=== PATIENT | female | born 1955 | race Caucasian/White ===

== ENCOUNTER 2018-08-12 12:14 | Emergency (ER) | payer MEDICAID ==
[~2018-08-12] VITALS: Ht 165.1 cm; Wt 90.9 kg
[~2018-08-12 12:14] MED LIST: CITA20TA28 PO; MELO-102 PO; RANI150C4 PO
[2018-08-12] MEDS ORDERED: propofol 10mg/ml 20ml vial IV ONE ×2 (12:30→13:30)
[2018-08-12] MEDS ORDERED: fentaNYL/PF 50MCG/1 ML 2ML syringe IV ONE (12:35)
[2018-08-12] MEDS ORDERED: HYDR-3965 PO (13:47)
--- NOTE | 2018-08-12 14:04 | NUR ---
PT WAS NOT GIVEN FENTANYL. MED WAS DRAWN UP AND PT REFUSED MED.
[2018-08-12 14:58] VITALS: BP 103/75
== END 2018-08-12 15:06 | disposition home or self-care (01) ==
LOC: ER 12:15
DX: S43.014A Anterior dislocation of right humerus, initial encounter (principal); S43.034A Inferior dislocation of right humerus, initial encounter; S43.004A Unspecified dislocation of right shoulder joint, initial encounter; I12.9 Hypertensive chronic kidney disease with stage 1 through stage 4 chronic kidney disease, or unspecified chronic kidney disease; N18.9 Chronic kidney disease, unspecified; Z79.82 Long term (current) use of aspirin; Z88.5 Allergy status to narcotic agent; Z79.899 Other long term (current) drug therapy; W07.XXXA Fall from chair, initial encounter; Y93.89 Activity, other specified; Y92.89 Other specified places as the place of occurrence of the external cause; Y99.8 Other external cause status
CPT/HCPCS: 23650; 73020; 73030; 96374; 99284; J2704; J3010

== ENCOUNTER 2019-01-14 13:41 | Emergency (ER) | payer MEDICARE, MEDICAID ==
[~2019-01-14] VITALS: Ht 165.1 cm; Wt 85.9 kg
[2019-01-14] MEDS ORDERED: propofol 10mg/ml 20ml vial IV ONE (14:30)
[2019-01-14 15:44] VITALS: BP 115/44
== END 2019-01-14 15:49 | disposition home or self-care (01) ==
LOC: ER 13:42
DX: S43.084A Other dislocation of right shoulder joint, initial encounter (principal); I12.9 Hypertensive chronic kidney disease with stage 1 through stage 4 chronic kidney disease, or unspecified chronic kidney disease; N18.9 Chronic kidney disease, unspecified; Z88.5 Allergy status to narcotic agent; Z79.899 Other long term (current) drug therapy; X50.1XXA Overexertion from prolonged static or awkward postures, initial encounter; Y93.89 Activity, other specified; Y92.89 Other specified places as the place of occurrence of the external cause; Y99.9 Unspecified external cause status
CPT/HCPCS: 23650; 73020; 99152; 99285; J2704

== ENCOUNTER 2020-04-21 09:04 | Emergency (ER) | payer MEDICARE, OTHER ==
[~2020-04-21] VITALS: Ht 165.1 cm; Wt 88.6 kg
[2020-04-21] MEDS ORDERED: bacitracin 15gm ointment TP ONE (09:40)
--- NOTE | 2020-04-21 10:53 | NUR ---
Patient moved to bed 14. Dr. Strauss to remove hook. Patient denies pain. UTD on tetnus.
--- NOTE | 2020-04-21 10:55 | NUR ---
DR ABRAHAM AT BEDSIDE .
[2020-04-21] MEDS ORDERED: CEPH250T PO (11:31)
[2020-04-21 11:45] VITALS: BP 129/76
== END 2020-04-21 11:44 | disposition home or self-care (01) ==
LOC: ER 09:04
DX: S60.551A Superficial foreign body of right hand, initial encounter (principal); I10 Essential (primary) hypertension; Z87.448 Personal history of other diseases of urinary system; Z87.19 Personal history of other diseases of the digestive system; Z88.5 Allergy status to narcotic agent; Z79.899 Other long term (current) drug therapy; Z79.2 Long term (current) use of antibiotics; X58.XXXA Exposure to other specified factors, initial encounter; Y93.89 Activity, other specified; Y92.89 Other specified places as the place of occurrence of the external cause; Y99.8 Other external cause status
CPT/HCPCS: 10120; 99284; 99285

== ENCOUNTER 2022-09-12 06:34 | Day surgery (SDC) | payer OTHER ==
[2022-09-11 13:39] LABS: BASOPHILS # (AUTO) 0.1 X10'3 (0-0.2); BASOPHILS % (AUTO) 0.9 % (0-1); EOSINOPHILS # (AUTO) 0.2 X10'3 (0-0.9); EOSINOPHILS % (AUTO) 2.8 % (0-6); HEMATOCRIT 45.6 % (35.0-45.0); HEMOGLOBIN 15.3 g/dl (12.0-16.0); LYMPHOCYTES # (AUTO) 2.1 X10'3 (1.1-4.8); LYMPHOCYTES % (AUTO) 27.6 % (21-51); MEAN CORPUSCULAR HEMOGLOBIN 31.3 PG (27.0-31.0); MEAN CORPUSCULAR HGB CONC 33.5 g/dL (33.0-36.5); MEAN CORPUSCULAR VOLUME 93.3 FL (78-98); MEAN PLATELET VOLUME 9.2 FL (7.4-10.4); MONOCYTES # (AUTO) 0.7 X10'3 (0-0.9); MONOCYTES % (AUTO) 9.3 % (2-12); NEUTROPHILS # (AUTO) 4.5 X10'3 (1.8-7.7); NEUTROPHILS % (AUTO) 59.4 % (42-75); PLATELET COUNT 214 X10'3 (140-440); RED BLOOD COUNT 4.89 X10'6 (4.20-5.60); RED CELL DISTRIBUTION WIDTH 14.1 % (11.5-14.5); WHITE BLOOD COUNT 7.6 X10'3 (4.5-11.0)
[2022-09-11 13:51] LABS: APTT 27 SECONDS (22-32)
[2022-09-11 13:52] LABS: ALBUMIN 3.8 G/DL (3.4-5.0); ANION GAP 6 (8-16); BILIRUBIN,TOTAL 0.5 MG/DL (0.1-1.0); BLOOD UREA NITROGEN 28 MG/DL (7-18); BUN/CREATININE RATIO 14.3 (10.0-20.0); CALCIUM 9.5 MG/DL (8.5-10.1); CHLORIDE 105 MMOL/L (99-107); CREATININE 1.96 MG/DL (0.40-0.90); GLUCOSE 81 MG/DL (70-104); POTASSIUM 4.3 MMOL/L (3.5-5.1); SODIUM 138 MMOL/L (135-145); TOTAL CARBON DIOXIDE 27.5 MMOL/L (24-32); TOTAL PROTEIN 7.4 G/DL (6.4-8.2); eGFR 26 ML/MIN
[2022-09-11 13:53] LABS: ALANINE AMINOTRANSFERASE 19 U/L (12-78); ALBUMIN/GLOBULIN RATIO 1.1 (1.1-1.5); ALKALINE PHOSPHATASE 127 IU/L (46-116); ASPARTATE AMINO TRANSFERASE 17 U/L (10-37)
[2022-09-12] VITALS (11 sets, daily range): BP systolic 101–162; BP diastolic 62–92
[~2022-09-12] VITALS: Ht 162.6 cm; Wt 83.1 kg
[2022-09-12] MEDS ORDERED: LOSA50TA64 PO (06:55)
[2022-09-12] MEDS ORDERED: FLUO-1 PO (06:55)
[2022-09-12] MEDS ORDERED: ROSU5TAB12 PO (06:55)
[2022-09-12] MEDS ORDERED: AMLO5TAB16 PO (06:55)
[2022-09-12] MEDS ORDERED: DAPA5TAB PO (06:55)
[2022-09-12] MEDS ORDERED: ASPI81TA52 PO (06:55)
[2022-09-12] MEDS ORDERED: ERGO500056 PO (06:55)
[2022-09-12] MEDS ORDERED: nitroGLYCERIN 0.4mg SUBLingual tab SL PRN ×2 (07:25→11:20)
[2022-09-12] MEDS: normal saline 1000ml 1,000 ML IV SCH ×2 (07:30→16:37)
[2022-09-12] MEDS ORDERED: LORazepam 0.5 MG tablet PO PRN (07:30)
[2022-09-12] MEDS ORDERED: diphenhydrAMINE 25mg capsule PO PRN (07:30)
[2022-09-12] MEDS ORDERED: normal saline 1,000 ML IV SCH (07:30)
[2022-09-12] MEDS ORDERED: midazolam 1 mg/ML 2ml injection ONE (09:41)
[2022-09-12] MEDS ORDERED: fentaNYL/PF 50MCG/1 ML 2ML syringe ONE (09:41)
[2022-09-12] MEDS ORDERED: iohexol 350 MG/ML 50ML vial IV ONE ×2 (09:42→10:28)
[2022-09-12] MEDS ORDERED: LIDOcaine 1% 30ml preserv. free vial ONE (09:42)
[2022-09-12] MEDS ORDERED: iohexol 350MG/ML 100ml bottle IV ONE (09:42)
[2022-09-12] MEDS ORDERED: HYDROcodone/acetaminophen 5mg/325mg tablet PO PRN (11:20)
[2022-09-12] MEDS ORDERED: HYDROcodone/acetaminophen 10/325mg tab PO PRN (11:20)
[2022-09-12] MEDS ORDERED: ondansetron/PF 4mg/2ml inj IV PRN (11:20)
[2022-09-12] MEDS ORDERED: OXAZEpam 15mg capsule PO PRN (11:20)
[2022-09-12] MEDS ORDERED: proCHLORperazine 10 MG/2 ml inj IV PRN (11:20)
== END 2022-09-12 17:10 | disposition home or self-care (01) ==
LOC: SSTAY O 06:34
PROVIDERS: ATTEND Internal Medicine Cardiovascular Disease
DX: R94.39 Abnormal result of other cardiovascular function study (principal); I25.10 Atherosclerotic heart disease of native coronary artery without angina pectoris; E11.22 Type 2 diabetes mellitus with diabetic chronic kidney disease; F32.A Depression, unspecified; N18.4 Chronic kidney disease, stage 4 (severe); Z79.899 Other long term (current) drug therapy; Z98.890 Other specified postprocedural states
CPT/HCPCS: 36415; 71046; 75630; 80053; 85025; 85610; 85730; 93005; 93458; 93567; 93880; 99152; 99153; C1760; C1769; J1644; J2250; J3010; J3490; J7030; Q0163; Q9967; A4615; A6258

== ENCOUNTER 2024-09-06 13:45 | Emergency (ER) | payer MEDICARE ==
[~2024-09-06] VITALS: Ht 162.6 cm; Wt 90.9 kg
[~2024-09-06 13:45] MED LIST changes: +AMLO5TAB16 PO; +ASPI81TA52 PO; -CITA20TA28 PO; +DAPA5TAB PO; +ERGO500056 PO; +FLUO-1 PO; +LOSA50TA64 PO; -MELO-102 PO; -RANI150C4 PO; +ROSU5TAB51 PO
[2024-09-06 14:57] VITALS: TEMP 97.9
[2024-09-06 15:22] VITALS: BP 150/73; PULSE 63; RESP 16; O2SAT 97
== END 2024-09-06 15:30 | disposition home or self-care (01) ==
LOC: ER 13:45
DX: M25.561 Pain in right knee (principal); I12.9 Hypertensive chronic kidney disease with stage 1 through stage 4 chronic kidney disease, or unspecified chronic kidney disease; N18.9 Chronic kidney disease, unspecified; Z88.5 Allergy status to narcotic agent; W19.XXXA Unspecified fall, initial encounter; Y93.89 Activity, other specified; Y92.89 Other specified places as the place of occurrence of the external cause; Y99.8 Other external cause status
CPT/HCPCS: 29505; 73564; 99283